=== PATIENT | male | born 1995 | race Caucasian/White ===

== ENCOUNTER 2023-08-05 12:55 | Outpatient (CLI) | payer BC, SELFPAY ==
--- NOTE | 2023-08-05 13:00 | CRLHL7_ITS ---
For Patients: As a result of the Century Cures Act, medical imaging exams and procedure reports are released immediately into your electronic medical record. You may view this report before your referring provider. If you have questions, please contact your health care provider. INDICATION: Nasal disorders. Difficulty breathing. TECHNIQUE: Noncontrast CT images of the paranasal sinuses. COMPARISON: None. FINDINGS: No air-fluid levels to suggest acute sinusitis. Moderate mucosal thickening in the maxillary sinuses. The ethmoid infundibula are partially opacified. Mild mucosal thickening in the frontal recesses. The frontal sinuses are otherwise clear. [id number] mucosal thickening ethmoid air cells. Mild mucosal thickening in the sphenoid sinuses. The sphenoethmoidal recesses are opacified. Mild leftward nasal septal deviation. There is a 6 mm leftward directed septal spur contacting the left inferior nasal turbinate. No nasal cavity masses. The mastoid air cells are clear. IMPRESSION: 1. Moderate mucosal thickening in the maxillary sinuses. There is otherwise mild paranasal sinus mucosal disease. No air-fluid levels to suggest acute sinusitis. 2. Mild leftward nasal septal deviation. A leftward directed septal spur contacts the left inferior nasal turbinate. Please note that all CT scans at this facility use dose modulation, iterative reconstruction, and/or weight-based dosing when appropriate to reduce radiation dose to as low as reasonably achievable. Dictated by Chevy Francis MD @ 08/05/2023 9:23:23 PM (Electronically Signed)
== END 2023-08-05 12:56 | disposition home or self-care (01) ==
LOC: CT 12:57
PROVIDERS: Visit Provider Otolaryngology
DX: J34.89 Other specified disorders of nose and nasal sinuses (principal); R06.09 Other forms of dyspnea; J32.0 Chronic maxillary sinusitis; J34.2 Deviated nasal septum
CPT/HCPCS: 70486

== ENCOUNTER 2023-08-19 13:19 | Outpatient (CLI) | payer BC, SELFPAY | END 2023-08-19 13:20 | disposition home or self-care (01) | PROVIDERS: PCP Nurse Practitioner Family; Visit Provider Nurse Practitioner Family | DX: R73.9 Hyperglycemia, unspecified (principal); Z13.220 Encounter for screening for lipoid disorders; Z13.228 Encounter for screening for other metabolic disorders | CPT/HCPCS: 80053; 80061 ==

== ENCOUNTER 2023-08-23 19:43 | Outpatient (CLI) | payer BC, SELFPAY ==
--- NOTE | 2023-09-22 09:45 | W.PM.SLEEP ---
Sleep Study Details Details Date of Sleep Study: 08/23/23 Sleep Study Details: STUDY TYPE:? Home unattended ? BMI:? 33.9 ORDERING PROVIDER:? Jana INDICATION:? Concerns about sleep apnea ? SLEEP SUMMARY:? 352 minutes monitored RESPIRATORY SUMMARY:? AHI 2, low oxygen 90, snoring 19.1% PERIODIC LIMB MOVEMENTS OF SLEEP:? Not recorded during home study CARDIAC:? Range 47-104, mean 60 IMPRESSION:? This study does not demonstrate clinically significant obstructive sleep apnea. The patient should be question as to whether he slept normally that night. If sleep disorder is strongly suspected would recommend either repeat study with sedative hypnotic agent if the patient did not sleep well or an in-lab study. RECOMMENDATION: See impression
== END 2023-08-23 19:44 | disposition home or self-care (01) ==
LOC: SLEEP 19:44
PROVIDERS: Visit Provider Otolaryngology
DX: G47.30 Sleep apnea, unspecified (principal); G47.10 Hypersomnia, unspecified; R06.83 Snoring
CPT/HCPCS: 95806

== ENCOUNTER 2023-12-02 14:53 | Outpatient (CLI) | payer OTHER, SELFPAY | END 2023-12-02 14:54 | disposition home or self-care (01) | LOC: LKVREF 14:54 | PROVIDERS: Visit Provider Nurse Practitioner Family | DX: R73.03 Prediabetes (principal) | CPT/HCPCS: 80053 ==

== ENCOUNTER 2025-04-18 08:26 | Outpatient (CLI) | payer OTHER, SELFPAY | END 2025-04-18 08:27 | disposition home or self-care (01) | PROVIDERS: PCP Nurse Practitioner Family; Visit Provider Nurse Practitioner Family | DX: E11.9 Type 2 diabetes mellitus without complications (principal); E78.5 Hyperlipidemia, unspecified | CPT/HCPCS: 80053; 80061; 82043; 82570; 84681 ==